=== PATIENT | female | born 1990 | race African-American/Black ===

== ENCOUNTER 2017-01-12 14:49 | Emergency (ER) ==
--- NOTE | 2017-01-12 15:02 | ED.PDOC ---
General ED Provider: Dr. AGNIESZKA SALEH JR Chief Complaint: Vaginal Bleeding Stated Complaint: onset vaginal bleeding 3-4 weeks ago--saw md and was told she is having miscarriage and bleeding would stop--bleeding continues--heavy bleeding with some clots noted--lower abd cramping--sees dr bazzi in [facility][End] 97.8 93 122/81 16 100; blleding for four weeks using about 16 pads a day"I have to double up" discussed need to follow up - this week, sooner if anemic, usually for ultrasound and may need same but not available today so follow this week with OBGYN; will checkpregnancy test Time Seen by Physician: 15:00 Mode of Arrival: Walk-In Information Source: Patient Exam Limitations: No limitations Nursing and Triage Documentation Reviewed and Agree: No Review of Systems - Review Of Systems Constitutional: Reports: No symptoms Eyes: Reports: No symptoms Ears, Nose, Mouth, Throat: Reports: No symptoms Respiratory: Reports: No symptoms Cardiac: Reports: No symptoms GI: Reports: No symptoms : Reports: No symptoms Musculoskeletal: Reports: No symptoms Skin: Reports: No symptoms Neurological: Reports: No symptoms Endocrine: Reports: No symptoms Hematologic/Lymphatic: Reports: No symptoms All Other Systems: Other Past Medical History - Past Medical History Previously Healthy: Yes Endocrine: Reports: None Cardiovascular: Reports: None Respiratory: Reports: None Hematological: Reports: None Gastrointestinal: Reports: None Genitourinary: Reports: None Neuro/Psych: Reports: None Musculoskeletal: Reports: None Cancer: Reports: None Last Menstrual Period: 3 weeks - Surgical History General Surgical History: Reports: (x3) - Family History Family History: Reports: Unknown - Social History Smoking Status: Former smoker Hx Substance Use: No Alcohol Screening: None Physical Exam - Physical Exam Appearance: Well-appearing Pain Distress: Mild Eyes: BINU, EOMI, Conjunctiva clear Neck: Supple Respiratory: Airway patent Cardiovascular: RRR, Pulses normal, No rub, No murmur GI/: Soft, Nontender, No masses, Bowel sounds normal, No Organomegaly, Tender (suprapubic) Musculoskeletal: Normal strength, ROM intact, No edema, No calf tenderness Skin: Warm, Dry, Normal color Neurological: Sensation intact, Motor intact, Reflexes intact, Cranial nerves intact, Alert, Oriented Psychiatric: Affect appropriate, Mood appropriate Critical Care Note - Critical Care Note Total Time (mins): 0 Course - Course Hematology/Chemistry: 01/12/17 15:05 Orders, Labs, Meds: Lab Review 01/12/17 15:05 WBC 6.12 RBC 4.43 Hgb 8.7 L Hct 29.2 L MCV 65.9 L MCH 19.6 L MCHC 29.8 L RDW Coeff of Ernesto 21.4 H Plt Count 357 Immature Gran % (Auto) 0.2 Neut % (Auto) 41.3 Lymph % (Auto) 43.3 [place] % (Auto) 13.1 H Eos % (Auto) 1.8 Baso % (Auto) 0.3 Immature Gran # (Auto) 0.0 Neut # 2.5 Lymph # 2.7 [place] # 0.8 Eos # 0.1 Baso # 0.0 Polychromasia 1+ Poikilocytosis 3+ Microcytosis 3+ Target Cells 2+ Tear Drop Cells 1+ Stomatocytes 1+ Serum , Qual Negative Orders Category Date Time Status CBC W/ AUTO DIFF Stat LAB 01/12/17 15:05 Completed SERUM TEST [SERUM ] Stat LAB 01/12/17 15:05 Completed RBC MORPHOLOGY Stat LAB 01/12/17 15:05 Completed Vital Signs: Temp Pulse Resp BP Pulse Ox 01/12/17 14:51 97.8 F 93 H 16 122/81 100 Departure - Departure Time of Disposition: 15:40 Disposition: HOME SELF-CARE Discharge Problem: Bleeding from vagina Anemia Qualifiers: Anemia type: iron deficiency Iron deficiency anemia type: chronic blood loss Qualifier 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) Instructions: Dysfunctional Uterine Bleeding (ED), Iron Rich Diet (ED), Iron Deficiency Anemia (ED) Condition: Good Pt referred to PMD for follow-up: Yes (follow up OBGYN) Additional Instructions: Premarin to stop bleeding provera to mature uterine lining follow up this week- OBGYN consider ultrasound discuss medications with your physician(take meds to appointment) Prescriptions: Estrogens, Conjugated [Premarin] 0.625 mg PO DAILY #21 tablet Ibuprofen [Motrin] 600 mg PO QID PRN #30 tablet PRN Reason: PAIN Medroxyprogesterone Acetate [Provera] 10 mg PO DAILY #7 tablet Multivit with Calcium,Iron,Min [Multivitamins C-[id number]] 1 each PO DAILY # 100 tablet Allergies/Adverse Reactions: Allergies No Known Allergies Allergy (Unverified 01/12/17 14:58) Home Medications: Ambulatory Orders Estrogens, Conjugated [Premarin] 0.625 mg PO DAILY #21 tablet 01/12/17 Ibuprofen [Motrin] 600 mg PO QID PRN #30 tablet 01/12/17 Medroxyprogesterone Acetate [Provera] 10 mg PO DAILY #7 tablet 01/12/17 Multivit with Calcium,Iron,Min [Multivitamins J-[id number]] 1 each PO DAILY # 100 tablet 01/12/17
[2017-01-12 15:14] LABS: BASOPHILS % (AUTO) 0.3 % (0.0-3.0); EOSINOPHILS # (AUTO) 0.1 K/ul (0.0-0.7); EOSINOPHILS % (AUTO) 1.8 % (0.0-7.0); HEMATOCRIT 29.2 % (37.0-47.0); HEMOGLOBIN 8.7 g/dl (12.0-16.0); IMMATURE GRANULOCYTE % (AUTO) 0.2 % (0.0-5.0); LYMPHOCYTES # (AUTO) 2.7 K/uL (0.60-3.4); LYMPHOCYTES % (AUTO) 43.3 (10.0-50.0); MEAN CORPUSCULAR HEMOGLOBIN 19.6 pg (27.0-31.0); MEAN CORPUSCULAR HGB CONC 29.8 (31.8-35.4); MEAN CORPUSCULAR VOLUME 65.9 fl (81.0-99.0); MONOCYTES # (AUTO) 0.8 K/uL (0.4-2.0); MONOCYTES % (AUTO) 13.1 (0-10); NEUTROPHILS # (AUTO) 2.5 K/ul (2.0-6.9); NEUTROPHILS % (AUTO) 41.3; PLATELET COUNT 357 10^3/uL (140-440); RED BLOOD COUNT 4.43 10^6/ul (4.20-5.40); WHITE BLOOD COUNT 6.12 K/ul (4.6-10.2)
[2017-01-12 15:16] VITALS: BP 122/81; TEMP 97.8; BMI 46.5
[2017-01-12 15:26] LABS: SERUM PREGNANCY INTERNAL QC INTERNAL QC VALID
[2017-01-12 15:29] LABS: ANISOCYTOSIS 3+ (NOT PRESENT); HYPOCHROMASIA 3+ (NOT PRESENT); MICROCYTOSIS 3+ (NOT PRESENT); POIKILOCYTOSIS 3+ (NOT PRESENT); POLYCHROMASIA 1+ (NOT PRESENT); STOMATOCYTES 1+ (NOT PRESENT); TARGET CELLS 2+ (NOT PRESENT); TEAR DROP CELLS 1+ (NOT PRESENT)
== END 2017-01-12 16:05 | disposition home or self-care (01) ==
LOC: ED 14:49
DX: N93.9 Abnormal uterine and vaginal bleeding, unspecified (principal); D50.0 Iron deficiency anemia secondary to blood loss (chronic)
CPT/HCPCS: 36415; 84703; 85008; 85025; 99282